=== PATIENT | male | born 1995 | race Caucasian/White ===

== ENCOUNTER 2019-10-17 02:39 | Emergency (ER) | payer OTHER ==
[~2019-10-17] VITALS: Ht 182.9 cm; Wt 72.6 kg
== END 2019-10-17 04:05 | disposition home or self-care (01) ==
LOC: ER 02:39
DX: S00.81XA Abrasion of other part of head, initial encounter (principal); F10.129 Alcohol abuse with intoxication, unspecified; V89.2XXA Person injured in unspecified motor-vehicle accident, traffic, initial encounter
CPT/HCPCS: 70450; 71046; 72125; 96372; 99284-25; J1885

== ENCOUNTER 2020-01-22 22:51 | Emergency (ER) | payer OTHER ==
[~2020-01-22] VITALS: Ht 185.4 cm; Wt 67.6 kg
[2020-01-22] MEDS ORDERED: PRED5 PO (23:05)
== END 2020-01-23 00:39 | disposition home or self-care (01) ==
LOC: ER 22:51
DX: L23.7 Allergic contact dermatitis due to plants, except food (principal); F17.210 Nicotine dependence, cigarettes, uncomplicated; F17.220 Nicotine dependence, chewing tobacco, uncomplicated; Z79.52 Long term (current) use of systemic steroids
CPT/HCPCS: 96372; 99282-25; J3301